=== PATIENT | male | born 1960 | race Caucasian/White ===

== ENCOUNTER 2021-03-11 18:11 | Emergency (ER) | payer MEDICAID ==
[~2021-03-11] VITALS: Ht 167.6 cm; Wt 99.8 kg
[~2021-03-11 18:11] MED LIST: METO25TA6 PO
--- NOTE | 2021-03-11 19:01 | NUR ---
Patient came in to the er c/o headache. On room air, breathing evenly and unlabored. COnnected to the monitor and pulse ox. Kept comfortable, will continue to monitor accordingly.
[2021-03-11] MEDS ORDERED: TYL2T MC (19:17)
--- NOTE | 2021-03-11 19:28 | NUR ---
RECEIVED REPORT FOR MICHAEL, PATIENT RESTING IN BED CONNCETED TO MONITOR, IN NO ACUTE DISTRESS.
[2021-03-11] MEDS ORDERED: HYDROCODONE/APAP 5/325MG TABLET PO ONE (19:30)
[2021-03-11] MEDS ORDERED: ONDANSETRON 4 MG TAB.RAPDIS SL ONE (19:30)
[2021-03-11] MEDS ORDERED: ONDANSETRON 4 MG TAB.RAPDIS ONE (19:31)
[2021-03-11] MEDS ORDERED: HYDROCODONE/APAP 5/325MG TABLET ONE (19:31)
--- NOTE | 2021-03-11 19:39 | NUR ---
Patient discharged to home in stable condition. Rx and Written and verbal after care instructions given. Patient verbalizes understanding of instruction.
[2021-03-11 19:40] VITALS: BP 155/89
== END 2021-03-11 19:41 | disposition home or self-care (01) ==
LOC: ER 18:13
DX: I10 Essential (primary) hypertension (principal); Z90.49 Acquired absence of other specified parts of digestive tract; Z79.899 Other long term (current) drug therapy
CPT/HCPCS: 99283; Q0162

== ENCOUNTER 2022-10-08 13:07 | Emergency (ER) | payer MEDICAID ==
[~2022-10-08] VITALS: Ht 167.6 cm; Wt 102.1 kg
[~2022-10-08 13:07] MED LIST changes: +TYL2T MC
--- NOTE | 2022-10-08 15:02 | NUR ---
DR DAMON AT BEDSIDE
--- NOTE | 2022-10-08 15:18 | NUR ---
RAPID COVID AND RAPID FLU SWAB DONE AND SENT TO LAB
[2022-10-08 15:47] LABS: BASOPHILS % (AUTO) 0.5 % (0.0-2.0); EOSINOPHILS % (AUTO) 0.6 % (0.0-6.0); HEMATOCRIT 40 % (39-51); HEMOGLOBIN 12.5 g/dL (13.5-17.5); LYMPHOCYTES # (AUTO) 1.9 K/uL (0.8-4.8); MEAN CORPUSCULAR HGB CONC 32 g/dl (31.0-36.0); MEAN CORPUSCULAR VOLUME 73 fL (80-96); MONOCYTES # (AUTO) 0.6 K/uL (0.1-1.30); MONOCYTES % (AUTO) 7.8 % (2.0-12.0); NEUTROPHILS % (AUTO) 66.1 % (43.0-81.0); PLATELET COUNT (AUTO) 300 K/uL (150-450); RED BLOOD CELL COUNT(AUTO) 5.46 MIL/uL (4.5-6.0); WHITE BLOOD COUNT (AUTO) 7.6 K/uL (4.3-11.0)
[2022-10-08 16:03] LABS: CALCIUM, SERUM 8.7 mg/dL (8.5-10.1); CARBON DIOXIDE 27 mmol/L (21-32); CHLORIDE 96 mmol/L (98-107); CREATININE 1.1 mg/dL (0.6-1.3); GLUCOSE 102 mg/dL (74-106); SODIUM SERUM 133 mmol/L (136-145); UREA NITROGEN, BLOOD 17 mg/dL (7-18)
[2022-10-08] MEDS ORDERED: POTASSIUM CHLORIDE 20 MEQ TAB.PRT.SR PO ONE (17:28)
[2022-10-08] MEDS: POTASSIUM CHLORIDE 20 MEQ TAB.PRT.SR PO ONE (17:31)
[2022-10-08 18:09] VITALS: BP 151/98
--- NOTE | 2022-10-08 18:09 | NUR ---
Patient discharged to home in stable condition. Written and verbal after care instructions given. Patient verbalizes understanding of instruction.
[2022-10-09 01:17] LABS: BASOPHILS % (MANUAL) 0 % (0.0-2.0); EOSINOPHILS % (MANUAL) 0 % (0-4); LYMPHOCYTES % (MANUAL) 14 % (16-48); MONOCYTES % (MANUAL) 9 % (0-11.0); NEUTROPHILS % (MANUAL) 77 (42-76)
== END 2022-10-08 18:09 | disposition home or self-care (01) ==
LOC: ER 13:15
DX: I10 Essential (primary) hypertension (principal); R68.83 Chills (without fever); R63.0 Anorexia; E87.1 Hypo-osmolality and hyponatremia; E87.6 Hypokalemia; Z90.49 Acquired absence of other specified parts of digestive tract; Z86.19 Personal history of other infectious and parasitic diseases; E87.8 Other disorders of electrolyte and fluid balance, not elsewhere classified; Z20.822 Contact with and (suspected) exposure to COVID-19
CPT/HCPCS: 99284; 87426; 93005; 87804; 85025; 80048; 36415; 84484 ×2; 85007; C9803